=== PATIENT | female | born 1955 | race African-American/Black ===

== ENCOUNTER 2016-10-16 09:31 | Emergency (ER) | payer OTHER ==
[~2016-10-16] VITALS: Ht 157.5 cm; Wt 103.4 kg
[~2016-10-16 09:31] MED LIST: ALBU18
[2016-10-16] MEDS ORDERED: MEPERIDINE HCL (50 MG/ML) 1 ML VIAL IM ONE (11:30)
[2016-10-16] MEDS ORDERED: PROMETHAZINE HCL 25 MG/ML 1ML IM ONE (11:30)
[2016-10-16 12:40] VITALS: BP 134/86
== END 2016-10-16 13:04 | disposition home or self-care (01) ==
LOC: ER 09:34
DX: M75.82 Other shoulder lesions, left shoulder (principal); M19.012 Primary osteoarthritis, left shoulder; M54.12 Radiculopathy, cervical region; M50.30 Other cervical disc degeneration, unspecified cervical region; E78.5 Hyperlipidemia, unspecified; Z88.6 Allergy status to analgesic agent
CPT/HCPCS: 72040; 73030; 93005; 96372; 99284; J2175; J2550